=== PATIENT | male | born 1940 | race Caucasian/White ===

== ENCOUNTER 2019-03-19 06:07 | Day surgery (SDC) | payer OTHER ==
[2019-03-15 09:25] VITALS: BMI 29.6
[2019-03-19] MEDS ORDERED: MIDAZOLAM HCL 2 MG/2 ML SINGLE DOSE VIAL ONE (07:07)
[2019-03-19] MEDS ORDERED: PROPOFOL 20 ML ONE ×4 (07:07→09:21)
[2019-03-19] MEDS ORDERED: ERYTHROMYCIN 0.5% OPHTHALMIC OINTMENT 3.5 GM TUBE ONE (07:08)
[2019-03-19] MEDS ORDERED: TETRACAINE 0.5% OPHTH SOLN 2 ML BOTTLE ONE (07:09)
[2019-03-19] MEDS ORDERED: LIDOCAINE 1%/EPI 1:100000 (20 ML MULTI DOSE VIAL) ONE (07:09)
[2019-03-19] MEDS ORDERED: POVIDONE-IODINE 5% OPHTHALMIC PREP 30 ML SOLUTION ONE (07:09)
[2019-03-19] MEDS ORDERED: ceFAZolin SODIUM 1 GM VIAL ONE (08:08)
[2019-03-19] MEDS ORDERED: oxyCODONE HCL 5 MG TABLET PO PRN ×2 (08:44)
[2019-03-19] MEDS ORDERED: LACTATED RINGERS SOLUTION 1,000 ML IV SCH (08:45)
[2019-03-19 11:04] VITALS: PULSE 50
[2019-03-19 11:18] VITALS: TEMP 97.6
--- NOTE | 2019-03-19 11:20 | EKG ---
Test Reason : Blood Pressure : / mmHG Vent. Rate : 051 BPM Atrial Rate : 061 BPM P-R Int : 000 ms QRS Dur : 102 ms QT Int : 450 ms P-R-T Axes : 000 -33 -01 degrees QTc Int : 414 ms SINUS RHYTHM WITH ECTOPIC ATRIAL RHYTHM WITH JUNCTIONAL ESCAPE COMPLEXES LEFT AXIS DEVIATION MINIMAL VOLTAGE CRITERIA FOR LVH, MAY BE NORMAL VARIANT ABNORMAL ECG Confirmed by MD TONIA, ALEAH ([id number]) on 03/19/2019 11:19:42 AM Referred By: Alejandro Israel Confirmed By:ALEAH RANDALL MD
[2019-03-19 12:34] VITALS: BP 160/82
--- NOTE | 2019-03-19 12:57 | OP ---
DATE OF OPERATION: 03/19/2019 PREOPERATIVE DIAGNOSIS: Dermatolysis with visual obstruction bilateral upper lids. POSTOPERATIVE DIAGNOSIS: Dermatolysis with visual obstruction bilateral upper lids. PROCEDURE: Blepharoplasty bilateral upper lids. SURGEON: Emmanuelle Alvarez MD ANESTHESIA: Local with sedation. COMPLICATIONS: None. ESTIMATED BLOOD LOSS: 3 to 4 mL OPERATIVE REPORT: Patient was brought to the operating room and placed on the operating room table. Vital signs were monitored by Anesthesia. Tetracaine was placed in both eyes. Timeout was performed. The lid crease was marked symmetrically, checked with caliper in both upper lids and the patient's hamilton lid crease approximately 10 mm above the central eyelid. It was extended from the punctum to the extent of the temporal landaverde laterally, which had been marked preoperatively in the holding area. The skin was then pinched and the amount of skin that could be safely removed without causing inversion of the lashes was determined with the skin pinch symmetrically and then the superior edges of the ellipse were marked. Patient was given intravenous sedation and 2% Xylocaine with 1:100,000 epinephrine was injected subcutaneously in both upper lids for a total of 3 mL bilaterally, so it was 6 total. The hemostasis. The patient was prepped and draped in the usual sterile fashion in both eyes. The following procedure was performed bilaterally. The crease was incised with the 15 blade, as was the superior edge of the ellipse and then the skin was removed with the [place] needle in the subdermal plane, leaving the orbicularis intact. Hemostasis was achieved with the [place] needle. Antibiotic irrigation was used throughout the case. Incision was made through the nasal orbicularis in both upper lids exposing the nasal fat pad and the central fat pad. The central fat pad was conservatively sculpted due to the fullness of the eyelid and the nasal fat pad was dissected at its pedicle, was released from the fibrous tissue, it was brought over centrally and secured to the undersurface of the orbicularis septum with a 7-0 Vicryl suture so that there would be transposition of the nasal fat to the central fat. The fat was then conservatively sculpted with cautery in order to create a smooth contour. In the temporal portion of the eyelids, the orbicularis was incised down to the orbital rim, at the lateral portion of the orbital rim and brow and then spreading with the Hughes scissor was used to separate the brow and elevate it away from the retaining ligaments at the lateral superior orbital rim. This was causing a temporal brow release. Hemostasis was achieved with the [place] needle and the wound was then closed with interrupted running 6-0 nylon suture with plastic technique and trimming as necessary for perfect symmetry. Erythromycin was placed on the sutures and the patient was taken to the recovery room in stable condition. EMMANUELLE ALVAREZ M.D. [id number]
--- NOTE | 2019-03-21 16:12 | PATH ---
Surgical Pathology Report Patient Name: CARLOS DELGADO Med. Rec. #: [id number] /Age/Gender: 1940 (Age: 78) / M Account: [id number] Location: [facility] Taken: 03/19/2019 Received: 03/19/2019 Reported: 03/21/2019 Physicians: Alejandro Israel Specimen(s) Received SKIN & TISSUE BOTH UPPER EYELIDS Clinical History Dermatochalasis Final Diagnosis SKIN AND TISSUE, BOTH UPPER EYELIDS, BLEPHAROPLASTY: SKIN WITH NO PATHOLOGIC FINDINGS. Electronically Signed Frances Espana M.D. Gross Description Received in formalin labeled "skin and tissue both upper eyelids," are 2 soto, unoriented, elliptical skin shaves measuring 5.0 x 0.6 cm and 5.0 x 0.8 cm. No epidermal lesions are identified. [employer] sections are submitted in one cassette. 03/20/201903/20/2019
== END 2019-03-19 12:10 | disposition home or self-care (01) ==
LOC: FASU 06:07
PROVIDERS: ATTEND Ophthalmology
PROC: 080N0ZZ Alteration of Right Upper Eyelid, Open Approach (ICD-10-PCS; 2019-03-19)
PROC: 080P0ZZ Alteration of Left Upper Eyelid, Open Approach (ICD-10-PCS; principal; 2019-03-19 07:30)
DX: H02.831 Dermatochalasis of right upper eyelid (principal); H02.834 Dermatochalasis of left upper eyelid
CPT/HCPCS: 93005; 94760

== ENCOUNTER 2023-10-05 04:09 | Day surgery (SDC) | payer OTHER ==
[2023-10-03 14:22] VITALS: BMI 31.6
[2023-10-05] MEDS ORDERED: DEXAMETHASONE SOD PHOSPHATE 10 MG/1 ML VIAL ONE (07:16)
[2023-10-05] MEDS ORDERED: LIDOCAINE HCL/PF 1% SDV 5ML VIAL ONE (07:16)
[2023-10-05] MEDS: IOHEXOL 180 MG/1 ML ML IJ ONE (12:40)
[2023-10-05] MEDS: DEXAMETHASONE SOD PHOSPHATE 10 MG/1 ML VIAL IVPUSH ONE (12:40)
[2023-10-05] MEDS: LIDOCAINE 1% P/F 10 MG/ML VIAL INF ONE (12:40)
[2023-10-05 13:22] VITALS: BP 148/77; PULSE 50; RESP 16; TEMP 97.8
[2023-10-05] MEDS ORDERED: ACETAMINOPHEN 500 MG TABLET (FP) PO PRN (16:52)
== END 2023-10-05 13:35 | disposition home or self-care (01) ==
LOC: JASU-SURG 04:09
PROVIDERS: ATTEND Pain Medicine Pain Medicine
PROC: 3E0R3BZ Introduction of Anesthetic Agent into Spinal Canal, Percutaneous Approach (ICD-10-PCS; 2023-10-05)
PROC: 3E0R33Z Introduction of Anti-inflammatory into Spinal Canal, Percutaneous Approach (ICD-10-PCS; principal; 2023-10-05 12:30)
DX: M54.16 Radiculopathy, lumbar region (principal); M48.061 Spinal stenosis, lumbar region without neurogenic claudication
CPT/HCPCS: 76000-TC-FY; J1100